=== PATIENT | female | born 2000 | race Two or more races ===

== ENCOUNTER 2018-02-13 21:15 | Emergency (ER) | payer OTHER ==
[~2018-02-13] VITALS: Ht 172.7 cm; Wt 79.4 kg
[2018-02-13 22:00] VITALS: BP 141/81
== END 2018-02-14 00:07 | disposition home or self-care (01) ==
LOC: ER 21:15
DX: S33.5XXA Sprain of ligaments of lumbar spine, initial encounter (principal); M62.838 Other muscle spasm; X50.1XXA Overexertion from prolonged static or awkward postures, initial encounter; Y93.E8 Activity, other personal hygiene; Y92.89 Other specified places as the place of occurrence of the external cause; Y99.8 Other external cause status
CPT/HCPCS: 72100